=== PATIENT | male | born 1985 | race African-American/Black ===

== ENCOUNTER → 2020-10-18 | Day surgery (SDC) | payer OTHER ==
[~2020-10-18] MED LIST: ACETAMINOPHEN/CODEINE 300MG - 30MG TAB ONE; BUPIVACAINE HCL 0.5% INJ 30 ML VIAL INJ ONE; CEFAZOLIN SOD 1 GM/NS 50ML 50 ML IV ONE; DEXAMETHASONE SOD PHOS INJ 4 MG/ML VIAL ONE; FENTANYL CITRATE/PF 100MCG/2 ML INJ ONE; FLONASE ALLERG9.9 ML INH; KETOROLAC TROMETHAMINE 30 MG/ML VIAL ONE; LIDOCAINE HCL 2% LOCAL INJ 5 ML SDV VIAL INJ ONE; MIDAZOLAM HCL 2 MG/2 ML VIAL ONE; NAPROXEN250 MG PO; ONDANSETRON HCL INJ 2MG/ML 2ML 2 MG/ML VIAL ONE; PROPOFOL IV EMULSION 10 MG/ML 20 ML VIAL ONE; SEVOFLURANE INHAL SOLN 250 ML PEN BTL ONE; ULTRAM 50MG50 MG PO
[2020-10-18 12:06] VITALS: BP 128/87
== END | disposition home or self-care (01) ==
LOC: OR 06:56
PROVIDERS: ATTEND Specialist
DX: S86.011A Strain of right Achilles tendon, initial encounter (principal); K21.9 Gastro-esophageal reflux disease without esophagitis; X58.XXXA Exposure to other specified factors, initial encounter; Y92.310 Basketball court as the place of occurrence of the external cause; Y99.8 Other external cause status; Z01.812 Encounter for preprocedural laboratory examination; Z20.822 Contact with and (suspected) exposure to COVID-19; Z68.37 Body mass index [BMI] 37.0-37.9, adult; Z86.16 Personal history of COVID-19
CPT/HCPCS: 27650; J0690; J1100; J1885; J2001; J2250; J2405; J2704; J3010; U0002